=== PATIENT | female | born 1940 | race Caucasian/White ===

== ENCOUNTER → 2016-04-27 | Outpatient (CLI) | payer MEDICARE, OTHER ==
[~2016-04-27] MED LIST: ADVA250A INH; AMLO10TA2 PO; BACT800T5 PO; LISI-515 PO; SIMV40TA PO; SIMVPOW
[2016-04-27 12:47] LABS: HEMATOCRIT 37.9 % (35.0-46.0); MEAN CELL VOLUME 98.4 FL (80.0-100.0); MEAN CORPUSCULAR HEMOGLOBIN 32.6 PG (27.0-34.0); MEAN CORPUSCULAR HGB CONC 33.1 % (32.0-36.0); PLATELET COUNT 223 TH/MM3 (150-450); RED BLOOD COUNT 3.85 MIL/MM3 (4.00-5.30); RED CELL DISTRIBUTION WIDTH 17.3 % (11.6-17.2); REVIEW FLAG FINAL; WHITE BLOOD COUNT 4.2 TH/MM3 (4.0-11.0)
[2016-04-27 13:31] LABS: ALKALINE PHOSPHATASE 81 U/L (45-117); ALT (GPT) 17 U/L (10-53); ANION GAP 6 MEQ/L (5-15); AST (GOT) 15 U/L (15-37); BICARBONATE 28.5 MEQ/L (21.0-32.0); BLOOD UREA NITROGEN 14 MG/DL (7-18); CHLORIDE 107 MEQ/L (98-107); GLOMERULAR FILTRATION RATE 55 ML/MIN (>89); GLUCOSE,FASTING 84 MG/DL (74-99); HDL CHOLESTEROL 66.3 MG/DL (40.0-60.0); LDL CHOLESTEROL 69 MG/DL (0-99); POTASSIUM 4.4 MEQ/L (3.5-5.1); SODIUM (NA) 141 MEQ/L (136-145); TOTAL BILIRUBIN ADULT 0.3 MG/DL (0.2-1.0)
[2016-04-27 13:33] LABS: CREATINE KINASE 78 U/L (26-192)
== END ==
LOC: PLAB 08:22
DX: E78.5 Hyperlipidemia, unspecified (principal); I10 Essential (primary) hypertension; Z79.899 Other long term (current) drug therapy
CPT/HCPCS: 36415; 80053; 80061; 82550; 85027

== ENCOUNTER 2016-10-10 10:59 | Emergency (ER) | payer OTHER, MEDICARE ==
[~2016-10-10] VITALS: Ht 172.7 cm; Wt 63.8 kg
[~2016-10-10 10:59] MED LIST changes: -BACT800T5 PO; -SIMV40TA PO
[2016-10-10 11:00] VITALS: BP 126/74; PULSE 84; RESP 18; TEMP 97.8; O2SAT 94
[2016-10-10] MEDS ORDERED: SIMV40TA PO (11:23)
[2016-10-10] MEDS ORDERED: ADVA250A INH (11:23)
--- NOTE | 2016-10-10 11:27 | PD ---
HPI Chief Complaint: Abdominal Pain Time Seen by Provider: 11:09 Travel History International Travel<30 days: No Contact w/Intl Traveler<30days: No Traveled to known affect area: No History of Present Illness HPI 76-year-old female says she been having some tightness across the epigastric area for several days. Last night she was having some right flank pain. She has a history of hysterectomy at which time an appendectomy was also done. She has not had any dysuria. She is not having pain right now. She does have carpal tunnel syndrome. She is being scheduled for surgery but her surgeon had told her he wanted to be sure she did not have an abdominal aneurysm because he felt a prominent pulsation PFS Past Medical History Cardiovascular Problems: Yes Respiratory: Yes ?: Not Social History Tobacco Use: No Allergies-Medications (Allergen,Severity, Reaction): Coded Allergies: No Known Allergies (Unverified , 10/10/16) Reported Meds & Prescriptions Reported Meds & Active Scripts Active Reported Advair Diskus Inh (Fluticasone-Salmeterol Inh) 250-50 Mcg/Blist Aer 1 Puff INH BID Rinse mouth after use. Simvastatin 40 Mg Tab 40 Mg PO HS Advair Diskus Inh (Fluticasone-Salmeterol Inh) 250-50 Mcg/Blist Aer 1 Puff INH BID Rinse mouth after use. Amlodipine (Amlodipine Besylate) 10 Mg Tab 10 Mg PO DAILY Lisinopril 20 Mg Tab 20 Mg PO DAILY Review of Systems General / Constitutional: No: Fever, Chills Eyes: No: Diploplia HENT: No: Headaches Cardiovascular: No: Chest Pain or Discomfort Respiratory: No: Cough, Shortness of Breath Gastrointestinal: No: Nausea Genitourinary: Positive: Flank Pain Musculoskeletal: No: Myalgias, Arthralgias Skin: No Rash, No Itching Neurologic: No: Weakness Physical Exam Narrative GENERAL: Well-developed male SKIN: Focused skin assessment warm/dry. HEAD: Atraumatic. Normocephalic. EYES: Pupils equal and round. No scleral icterus. No injection or drainage. ENT: No nasal bleeding or discharge. Mucous membranes pink and moist. NECK: Trachea midline. No JVD. CARDIOVASCULAR: Regular rate and rhythm. No murmur appreciated. RESPIRATORY: No accessory muscle use. Clear to auscultation. Breath sounds equal bilaterally. GASTROINTESTINAL: Abdomen soft, non-tender, nondistended. Hepatic and splenic margins not palpable. There is some right CVA tenderness MUSCULOSKELETAL: No obvious deformities. No clubbing. No cyanosis. No edema. NEUROLOGICAL: Awake and alert. No obvious cranial nerve deficits. Motor grossly within normal limits. Normal speech. PSYCHIATRIC: Appropriate mood and affect; insight and judgment normal. Data Data Last Documented VS Vital Signs Date Time Temp Pulse Resp B/P Pulse Ox O2 Delivery O2 Flow Rate FiO2 10/10/16 13:24 86 16 108/60 96 10/10/16 11:00 97.8 Orders Complete Blood Count With Diff (10/10/16 11:16) Comprehensive Metabolic Panel (10/10/16 11:16) Lipase (10/10/16 11:16) Urinalysis - C+S If Indicated (10/10/16 11:16) Urine Culture (10/10/16 11:40) Ceftriaxone Inj (Rocephin Inj) (10/10/16 12:00) Ct Abd/Pel W Iv Contrast(Rout) (10/10/16 12:00) Iohexol 350 Inj (Omnipaque 350 Inj) (10/10/16 13:41) Labs Laboratory Tests Test 10/10/16 11:40 White Blood Count 4.7 TH/MM3 Red Blood Count 3.79 MIL/MM3 Hemoglobin 12.7 GM/DL Hematocrit 37.6 % Mean Corpuscular Volume 99.2 FL Mean Corpuscular Hemoglobin 33.6 PG Mean Corpuscular Hemoglobin 33.9 % Concent Red Cell Distribution Width 17.5 % Platelet Count 254 TH/MM3 Mean Platelet Volume 6.6 FL Neutrophils (%) (Auto) 63.4 % Lymphocytes (%) (Auto) 23.6 % Monocytes (%) (Auto) 8.7 % Eosinophils (%) (Auto) 3.4 % Basophils (%) (Auto) 0.9 % Neutrophils # (Auto) 3.0 TH/MM3 Lymphocytes # (Auto) 1.1 TH/MM3 Monocytes # (Auto) 0.4 TH/MM3 Eosinophils # (Auto) 0.2 TH/MM3 Basophils # (Auto) 0.0 TH/MM3 CBC Comment DIFF FINAL Differential Comment Urine Collection Type CLEAN CATCH Urine Color YELLOW Urine Turbidity MARKED Urine pH 5.5 Urine Specific [place] 1.011 Urine Protein TRACE mg/dL Urine Glucose (UA) NEG mg/dL Urine Ketones NEG mg/dL Urine Occult Blood MOD Urine Nitrite NEG Urine Bilirubin NEG Urine Leukocyte Esterase LARGE Urine RBC 25-49 /hpf Urine WBC INNUM /hpf Urine Squamous Epithelial > 8 /hpf Cells Urine Bacteria MOD /hpf Microscopic Urinalysis Comment CULTURE INDICATED Urine Collection Time 11:40 Sodium Level 139 MEQ/L Potassium Level 4.8 MEQ/L Chloride Level 105 MEQ/L Carbon Dioxide Level 24.2 MEQ/L Anion Gap 10 MEQ/L Blood Urea Nitrogen 16 MG/DL Creatinine 1.10 MG/DL Estimat Glomerular Filtration 48 ML/MIN Rate Random Glucose 97 MG/DL Calcium Level 8.8 MG/DL Total Bilirubin 0.4 MG/DL Aspartate Amino Transf 29 U/L (AST/SGOT) Alanine Aminotransferase 20 U/L (ALT/SGPT) Alkaline Phosphatase 66 U/L Total Protein 7.1 GM/DL Albumin 3.7 GM/DL Lipase 146 U/L [facility] Medical Decision Making Medical Screen Exam Complete: Yes Emergency Medical Condition: Yes Medical Record Reviewed: Yes Differential Diagnosis Differential includes renal colic, abdominal aortic aneurysm, pyelonephritis Narrative Course Hemoglobin is 12 7. White count is 4.7. Urine shows innumerable white cells. Because of the concern for abdominal aneurysms a CT was done which is read as negative. Patient be treated with Bactrim Diagnosis Primary Impression: Pyelonephritis Scripts Sulfamethoxazole-Trimethoprim (Bactrim DS)800-160 Mg Tab1 Tab PO BID #20 TAB Ref 0 Prov:Moises Lee MD 10/10/16 Disposition: 01 DISCHARGE HOME Condition: Stable Moises Lee MD Oct 10, 2016 11:27
[2016-10-10 11:50] LABS: BASOPHIL % 0.9 % (0.0-2.0); EOSINOPHIL # 0.2 TH/MM3 (0-0.4); EOSINOPHIL % 3.4 % (0.0-4.0); HEMATOCRIT 37.6 % (35.0-46.0); HEMO FLAGS DIFF FINAL; LYMPH % 23.6 % (9.0-44.0); LYMPHOCYTE # 1.1 TH/MM3 (1.0-4.8); MEAN CELL VOLUME 99.2 FL (80.0-100.0); MEAN CORPUSCULAR HEMOGLOBIN 33.6 PG (27.0-34.0); MEAN CORPUSCULAR HGB CONC 33.9 % (32.0-36.0); MONO % 8.7 % (0.0-8.0); NEUT % 63.4 % (16.0-70.0); PLATELET COUNT 254 TH/MM3 (150-450); RED BLOOD COUNT 3.79 MIL/MM3 (4.00-5.30); RED CELL DISTRIBUTION WIDTH 17.5 % (11.6-17.2); WHITE BLOOD COUNT 4.7 TH/MM3 (4.0-11.0)
[2016-10-10 11:51] LABS: GLUCOSE,URINE NEG (NEG); KETONE, URINE NEG (NEG); NITRITE,URINE NEG (NEG); PH, URINE 5.5 (5.0-8.5)
[2016-10-10 11:57] LABS: BLOOD, URINE MOD (NEG); METHOD OF COLLECTION CLEAN CATCH; URINE COLOR YELLOW (YELLW/STRAW)
[2016-10-10 11:58] LABS: BACTERIA, URINE MOD /hpf; CHLORIDE 105 MEQ/L (98-107); COMMENT (UR) CULTURE INDICATED; CULTURE IF INDICATED CULTURE INDICATED; POTASSIUM 4.8 MEQ/L (3.5-5.1); SODIUM (NA) 139 MEQ/L (136-145); SQUAMOUS EPITHELIAL CELL URINE > 8 /hpf (0-5); WBC, URINE INNUM /hpf (0-5)
[2016-10-10] MEDS ORDERED: cefTRIAXone INJ 1,000 MG in SODIUM CHLORIDE 0.9% INJ 100 ML IV ONE (12:00)
[2016-10-10 12:02] LABS: ANION GAP 10 MEQ/L (5-15); BICARBONATE 24.2 MEQ/L (21.0-32.0); BLOOD UREA NITROGEN 16 MG/DL (7-18)
[2016-10-10 12:05] LABS: ALT (GPT) 20 U/L (10-53); AST (GOT) 29 U/L (15-37); GLOMERULAR FILTRATION RATE 48 ML/MIN (>89)
[2016-10-10 12:06] LABS: TOTAL BILIRUBIN ADULT 0.4 MG/DL (0.2-1.0)
[2016-10-10 12:08] LABS: ALKALINE PHOSPHATASE 66 U/L (45-117)
[2016-10-10 13:24] VITALS: BP 108/60; PULSE 86; RESP 16; O2SAT 96
[2016-10-10] MEDS ORDERED: IOHEXOL 350 MG/ML 10 ML VIAL (for RAD DIAG) IV ONE (13:41)
--- NOTE | 2016-10-10 14:03 | RADHPO ---
EXAM DATE/TIME: 10/10/2016 13:27 [facility] COMPARISON: No previous studies available for comparison. INDICATIONS : Upper abdominal pain radiaitng to right flank posteriorly. IV CONTRAST: 75 cc Omnipaque 350 (iohexol) IV ORAL CONTRAST: No oral contrast ingested. RADIATION DOSE: 7.04 CTDIvol (mGy) MEDICAL HISTORY : Hypertension. Chronic obstructive pulmonary disease. SURGICAL HISTORY : Appendectomy. Hysterectomy. ENCOUNTER: Initial ACUITY: 2 days PAIN SCALE: 4/10 LOCATION: Right upper quadrant TECHNIQUE: Volumetric scanning of the abdomen and pelvis was performed. Using automated exposure control and ad justment of the mA and/or kV according to patient size, radiation dose was kept as low as reasonably achievable to obtain optimal diagnostic quality images. FINDINGS: LOWER LUNGS: Moderate centrilobular emphysema with scarring noted at the bases. LIVER: Homogeneous density without lesion. There is no dilation of the biliary tree. No calcified gallston es. SPLEEN: Normal size without lesion. PANCREAS: Within normal limits. KIDNEYS: Slightly asymmetrical in size with mild sigmoid diverticulosis without evidence for typhlitis. apparent cortical scarring bilaterally. Kidneys are otherwise unremarkable and demonstrate symmetrica l enhancement without evidence for hydronephrosis or renal calculi. ADRENAL GLANDS: Within normal limits. VASCULAR: Moderate abdominal aortic and described calcifications without aneurysm. Celiac is grossly patent. Th ere is likely moderate stenosis of the SMA origin. This likely moderate stenosis. Calcified left phillip l artery origin with likely mild stenosis. Evaluation is however limited due to mixed phase imaging. BOWEL/MESENTERY: Mild sigmoid diverticulosis without inflammatory change to suggest diverticulitis. Bowel otherwise ap pears unremarkable. No evidence for obstruction. The appendix is surgically absent. ABDOMINAL WALL: Within normal limits. RETROPERITONEUM: There is no lymphadenopathy. BLADDER: No wall thickening or mass. REPRODUCTIVE: Uterus is surgically absent. INGUINAL: There is no lymphadenopathy or hernia. MUSCULOSKELETAL: No abnormal lytic or blastic bony lesions. Degenerative spondylosis of the lower lumbar spine. CONCLUSION: 1. No definitive CT findings to explain patient's symptoms. 2. Moderate centrilobular emphysema in the lower lobes bilaterally. 3. Mild sigmoid diverticulosis without evidence of diverticulitis. 4. Diffuse atherosclerotic calcifications of the abdominal aorta and visceral artery branches, as abo ve. Aidan Rehman MD on October 10, 2016 at 13:49 Board Certified Radiologist. This report was verified electronically.
[2016-10-10] MEDS ORDERED: BACT800T5 PO (14:16)
== END 2016-10-10 14:27 | disposition home or self-care (01) ==
LOC: PHED 10:59
DX: N12 Tubulo-interstitial nephritis, not specified as acute or chronic (principal); B96.89 Other specified bacterial agents as the cause of diseases classified elsewhere
CPT/HCPCS: 74177; 80053; 81001; 83690; 85025; 87077; 87086; 87186; 96365; 96375; 99284; J0696; Q9967

== ENCOUNTER → 2016-10-20 | Outpatient (CLI) | payer MEDICARE, OTHER ==
[~2016-10-20] MED LIST changes: +BACT800T5 PO; +SIMV40TA PO; -SIMVPOW
== END ==
LOC: PLAB 08:53
DX: N39.0 Urinary tract infection, site not specified (principal)
CPT/HCPCS: 87086

== ENCOUNTER → 2016-10-27 | Outpatient (CLI) | payer MEDICARE, OTHER ==
[2016-10-27 10:21] LABS: ANION GAP 8 MEQ/L (5-15); AST (GOT) 14 U/L (15-37); BLOOD UREA NITROGEN 20 MG/DL (7-18); CHLORIDE 105 MEQ/L (98-107); GLOMERULAR FILTRATION RATE 60 ML/MIN (>89); GLUCOSE,FASTING 88 MG/DL (74-99); POTASSIUM 4.5 MEQ/L (3.5-5.1); SODIUM (NA) 137 MEQ/L (136-145)
[2016-10-27 10:22] LABS: ALT (GPT) 16 U/L (10-53)
[2016-10-27 10:25] LABS: ALKALINE PHOSPHATASE 66 U/L (45-117); HDL CHOLESTEROL 61.2 MG/DL (40.0-60.0); LDL CHOLESTEROL 90 MG/DL (0-99); TOTAL BILIRUBIN ADULT 0.3 MG/DL (0.2-1.0)
[2016-10-27 10:32] LABS: CREATINE KINASE 57 U/L (26-192)
== END ==
LOC: PLAB 07:33
DX: E78.5 Hyperlipidemia, unspecified (principal); Z79.899 Other long term (current) drug therapy
CPT/HCPCS: 36415; 80053; 80061; 82550

== ENCOUNTER → 2016-11-02 | Day surgery (SDC) | payer MEDICARE, OTHER ==
[~2016-11-02] VITALS: Ht 172.7 cm; Wt 62.0 kg
[~2016-11-02] MED LIST changes: +BACITRACIN TOP OINT 15 GM TUBE ONE; +BUPIVACAINE HCL PF 0.5% 30 ML VIAL ONE; +CHLORHEXIDINE GLUCONATE 2 % 1 PACK (2 CLOTHS) TOPICAL PRN; +DEXAMETHASONE SOD PHOS 4 MG/ML VIAL ONE; +DEXT 5%-NACL 0.45% 1000 ML INJ 1,000 ML IV SCH; +INSULIN HUMAN REGULAR 1,000 UNITS/10 ML VIAL SQ PRN; +LACTATED RINGER'S 1000 ML INJ 1,000 ML IV ONE; +LACTATED RINGER'S 1000 ML IV PRN; +LIDOCAINE 1%/EPINEPHrine 1:100,000 SOLN 30 ML VIAL ONE; +METOPROLOL TARTRATE 25 MG TAB PO PRN; +MIDAZOLAM HCL 2 MG/2 ML VIAL ONE; +ONDANSETRON HCL 4 MG/2 ML VIAL IV ONE; +OXYMETAZOLINE HCL 0.05% 15 ML NASAL SPRAY ONE; +POVIDONE IODINE 10% OINT 1 PACKET TOPICAL ONE; +POVIDONE IODINE 5% (ANTISEPSIS KIT) 4 APPLICATIONS EACH NARE PRN; +PROPOFOL 200 MG/20 ML AMP IV ONE; +SODIUM CHLORID 0.9% 500 ML IV PRN; +SODIUM CHLORIDE 0.9% FLUSH 5 ML FLUSH IVF PRN; +SODIUM CHLORIDE 0.9% FLUSH 5 ML FLUSH IVF SCH; +SODIUM CHLORIDE 0.9% INJ 50 ML ONE; +ceFAZolin 1,000 MG/NS 100 ML IV SCH
--- NOTE | 2016-11-02 08:44 | HP.UPD ---
H&P Update Date: Nov 02, 2016 Note The Pre-Admit History and Physical Examination regarding the above named patient was reviewed (including, but not limited to, vital signs, medications, allergies, co-morbid conditions), and upon re-examination it is noted that: Indicated with "X" x - the patient's condition has not significantly changed since the last examination. [] - the patient's condition has changed since the last examination. Changes: Tatyana Urrutia MD Nov 02, 2016 08:43
[2016-11-02 09:10] VITALS: BP 122/78; PULSE 68; RESP 18; TEMP 97.4; O2SAT 97
[2016-11-02 12:15] VITALS: PULSE 73
--- NOTE | 2016-11-02 12:23 | HHI.PR ---
Immediate Post Op Note Procedure Date: Nov 02, 2016 Pre Op Diagnosis: (1) Right carpal tunnel syndrome Post Op Diagnosis: (1) Right carpal tunnel syndrome Surgeon: Tatyana Urrutia Shell Reprint Operator(s): None Procedure: Open release of the right carpal tunnel. Anesthesia: General Drains: None Tourniquet time (min at mmHg) 19 minutes at 220 mm Hg Patient to: PACU Patient Condition: Good Date/Time of Procedure: SEE SURGICAL CARE RECORD Tatyana Urrutia MD Nov 02, 2016 12:23
[2016-11-02 13:20] VITALS: BP 105/59; PULSE 85; RESP 16; TEMP 97.6; O2SAT 100
--- NOTE | 2016-11-02 19:02 | EKG ---
Date Performed: 11/02/2016 Time Performed: 09:15:39 PTAGE: 76 years EKG: Sinus rhythm WITH OCCASIONAL VENTRICULAR PREMATURE COMPLEXES LOW QRS VOLTAGE IN EXTREMITY LEADS BORDERLINE ECG NO PREVIOUS TRACING DOCTOR: Matt Allison Interpretating Date/Time 11/02/2016 19:01:33
--- NOTE | 2016-11-02 23:02 | MP ---
cc: JUAREZ FRENCH M.D. DATE OF SURGERY: 11/02/2016 PREOPERATIVE DIAGNOSIS: Right carpal tunnel syndrome POSTOPERATIVE DIAGNOSIS: Right carpal tunnel syndrome OPERATION: Open release of the right carpal tunnel. ANESTHESIA: General. SURGEON: Juarez French MD INDICATIONS 76-year-old female with right carpal tunnel syndrome for release. FINDINGS The patient had a tight tunnel. At the completion of the procedure the transverse carpal ligament was completely divided. TOURNIQUET TIME: 19 minutes. PROCEDURE: The patient was seen preoperatively where the site and side were identified and marked. The patient was then taken to the operating room, placed in supine position, identity was checked against the arm band and the consent form, site and side confirmed, time-out called prior to beginning the procedure. The right upper extremity was prepped with Hibiclens and draped in the usual sterile fashion. The area be incised was outlined with a marking pain, as a longitudinal incision just to the ulnar side of the midline. The arm was exsanguinated and tourniquet inflated to 220 mmHg, bupivacaine 0.5% plain was used to make a median nerve block in the distal forearm. In addition, anesthetic was placed in the area of the incision. A #15 blade was used to make an incision down through skin down through subcutaneous tissue down to the palmar fascia. Distally a small hole was poked in the palmar fascia and using the ulnar artery as a guide Guyon's canal was released. The ulnar artery and nerve were retracted ulnarly. The median nerve retracted medially and using the flexor tendon to the ring finger as a guide, the transverse carpal ligament was divided. Once the forearm fascia was reached the scissor was kept in a slightly open position and using the push technique release for approximately 2 to 3 cm into the distal forearm. The median nerve was then carefully from the roof of the carpal tunnel. There was no significant scarring noted but there was flattening of the nerve. The wound was then irrigated and injected with additional anesthetic and closed with running 5-0 nylon suture. Once the wound was closed the tourniquet was released after 19 minutes of tourniquet time. Pressure was applied after several minutes, there was no evidence of any oozing. Dressing was applied using povidone-iodine ointment, Adaptic, Telfa, 4x4s and hand wrap. The patient was then taken from the operating room to the recovery room in satisfactory condition having tolerated the procedure well. Postoperative instructions include keeping the arm elevated, keeping it clean and dry and returning in several days for follow up. MD KAREN Wallace/MANAN /12:31 PM /10:58 PM
== END | disposition home or self-care (01) ==
LOC: PHSDC 07:41
PROVIDERS: ATTEND Specialist
DX: G56.01 Carpal tunnel syndrome, right upper limb (principal); I10 Essential (primary) hypertension; E78.5 Hyperlipidemia, unspecified; J44.9 Chronic obstructive pulmonary disease, unspecified; J45.909 Unspecified asthma, uncomplicated
CPT/HCPCS: 64721; 93005; J0690; J1100; J2250; J2405; J7120

== ENCOUNTER 2017-01-06 12:20 | Emergency (ER) | payer MEDICARE, OTHER ==
[~2017-01-06 12:20] MED LIST changes: -BACITRACIN TOP OINT 15 GM TUBE ONE; -BACT800T5 PO; -BUPIVACAINE HCL PF 0.5% 30 ML VIAL ONE; -CHLORHEXIDINE GLUCONATE 2 % 1 PACK (2 CLOTHS) TOPICAL PRN; +CYAN1KIT2 IM; -DEXAMETHASONE SOD PHOS 4 MG/ML VIAL ONE; -DEXT 5%-NACL 0.45% 1000 ML INJ 1,000 ML IV SCH; -INSULIN HUMAN REGULAR 1,000 UNITS/10 ML VIAL SQ PRN; -LACTATED RINGER'S 1000 ML INJ 1,000 ML IV ONE; -LACTATED RINGER'S 1000 ML IV PRN; -LIDOCAINE 1%/EPINEPHrine 1:100,000 SOLN 30 ML VIAL ONE; -METOPROLOL TARTRATE 25 MG TAB PO PRN; -MIDAZOLAM HCL 2 MG/2 ML VIAL ONE; -ONDANSETRON HCL 4 MG/2 ML VIAL IV ONE; -OXYMETAZOLINE HCL 0.05% 15 ML NASAL SPRAY ONE; -POVIDONE IODINE 10% OINT 1 PACKET TOPICAL ONE; -POVIDONE IODINE 5% (ANTISEPSIS KIT) 4 APPLICATIONS EACH NARE PRN; -PROPOFOL 200 MG/20 ML AMP IV ONE; -SODIUM CHLORID 0.9% 500 ML IV PRN; -SODIUM CHLORIDE 0.9% FLUSH 5 ML FLUSH IVF PRN; -SODIUM CHLORIDE 0.9% FLUSH 5 ML FLUSH IVF SCH; -SODIUM CHLORIDE 0.9% INJ 50 ML ONE; -ceFAZolin 1,000 MG/NS 100 ML IV SCH
[2017-01-06] MEDS ORDERED: GADODIAMIDE PF 287 MG/ML 5 ML VIAL (for RAD MRI) IVCONTRAST ONE (12:21)
[2017-01-06 12:26] VITALS: BP 123/68; PULSE 95; RESP 20; TEMP 97.2; O2SAT 95
--- NOTE | 2017-01-06 13:03 | PD ---
HPI Chief Complaint: Neuro Symptoms/ Deficits Time Seen by Provider: 12:35 Travel History International Travel<30 days: No Contact w/Intl Traveler<30days: No Traveled to known affect area: No History of Present Illness HPI This is a 76-year-old female who presents to the emergency department reporting that this morning she woke up and she had numbness in the left side of her face. She says she also has numbness in both of her hands but this is chronic and she has a history of carpal tunnel syndrome in the right hand. Her symptoms of been constant throughout the morning and she talked to a family member and they thought her face looked different so she came to the emergency department. She says she's having trouble with coordination. She's not a good historian and it's difficult to tell whether this is new or old. She denies any headache. PFSH Past Medical History Cancer: No Cardiovascular Problems: No High Cholesterol: Yes COPD: Yes Diabetes: No Diminished Hearing: No Endocrine: No Genitourinary: No Hepatitis: No Hiatal Hernia: No Hypertension: Yes Immune Disorder: No Musculoskeletal: No Neurologic: No Psychiatric: Yes (CLAUSTERPHOBIA) Reproductive: No Respiratory: Yes (COPD) Thyroid Disease: No Tetanus Vaccination: > 5 Years Influenza Vaccination: Yes Menopausal: Yes Past Surgical History Abdominal Surgery: Yes (POSSIBLE APPENDECTOMY) AICD: No Appendectomy: Yes Eye Surgery: Yes (BL CATARACTS) Gynecologic Surgery: Yes (HYSTERECTOMY, R BREAST BIOPSY) Hysterectomy: Yes Joint Replacement: No Pacemaker: No Other Surgery: Yes (CARPAL TUNNEL) Social History Alcohol Use: No Tobacco Use: No Substance Use: No Allergies-Medications (Allergen,Severity, Reaction): Coded Allergies: No Known Allergies (Unverified , 01/06/17) Reported Meds & Prescriptions Reported Meds & Active Scripts Active B-12 Compliance Inj (Cyanocobalamin) 1,000 Mcg/Ml Kit 1,000 Mcg IM Q30D Bring to PCP for injection Reported Simvastatin 40 Mg Tab 40 Mg PO HS Advair Diskus Inh (Fluticasone-Salmeterol Inh) 250-50 Mcg/Blist Aer 1 Puff INH BID Rinse mouth after use. Amlodipine (Amlodipine Besylate) 10 Mg Tab 10 Mg PO DAILY Lisinopril 20 Mg Tab 20 Mg PO DAILY Review of Systems Except as stated in HPI: all other systems reviewed are Neg Physical Exam Narrative GENERAL:Well appearing, no acute distress SKIN: Focused skin assessment warm and dry. HEAD: Atraumatic. Normocephalic. EYES: Pupils equal and round. No injection or drainage. ENT: Moist mucous membranes. Swelling of the left upper lip NECK: Trachea midline. CARDIOVASCULAR: Regular rate and rhythm. No murmur appreciated. RESPIRATORY: Clear to auscultation. Breath sounds equal bilaterally. GASTROINTESTINAL: Abdomen soft, non-tender, nondistended. MUSCULOSKELETAL: No obvious deformities. NEUROLOGICAL: Awake and alert. No obvious cranial nerve deficits. No dysarthria or aphasia. No upper or lower extremity drift. Ataxia of the left upper extremity. Visual drake intact. PSYCHIATRIC: Appropriate mood and affect; insight and judgment normal. Data Data Last Documented VS Vital Signs Date Time Temp Pulse Resp B/P (MAP) Pulse Ox O2 Delivery O2 Flow Rate FiO2 01/06/17 15:06 83 16 116/65 (82) 99 Room Air 01/06/17 12:26 97.2 Orders Orders Complete Blood Count With Diff (01/06/17 12:44) Comprehensive Metabolic Panel (01/06/17 12:44) Electrocardiogram (01/06/17 ) Lorazepam Inj (Ativan Inj) (01/06/17 13:45) Mri Brain W/O Contrast (01/06/17 ) Labs Laboratory Tests Test 01/06/17 13:00 White Blood Count 5.3 TH/MM3 Red Blood Count 3.58 MIL/MM3 Hemoglobin 11.6 GM/DL Hematocrit 35.3 % Mean Corpuscular Volume 98.5 FL Mean Corpuscular Hemoglobin 32.5 PG Mean Corpuscular Hemoglobin Concent 33.0 % Red Cell Distribution Width 16.0 % Platelet Count 404 TH/MM3 Mean Platelet Volume 6.8 FL Neutrophils (%) (Auto) 67.3 % Lymphocytes (%) (Auto) 14.7 % Monocytes (%) (Auto) 12.2 % Eosinophils (%) (Auto) 4.8 % Basophils (%) (Auto) 1.0 % Neutrophils # (Auto) 3.4 TH/MM3 Lymphocytes # (Auto) 0.8 TH/MM3 Monocytes # (Auto) 0.7 TH/MM3 Eosinophils # (Auto) 0.3 TH/MM3 Basophils # (Auto) 0.1 TH/MM3 CBC Comment DIFF FINAL Differential Comment Blood Urea Nitrogen 17 MG/DL Creatinine 1.20 MG/DL Random Glucose 100 MG/DL Total Protein 6.7 GM/DL Albumin 3.3 GM/DL Calcium Level 8.4 MG/DL Alkaline Phosphatase 94 U/L Aspartate Amino Transf (AST/SGOT) 29 U/L Alanine Aminotransferase (ALT/SGPT) 22 U/L Total Bilirubin 0.3 MG/DL Sodium Level 136 MEQ/L Potassium Level 4.5 MEQ/L Chloride Level 105 MEQ/L Carbon Dioxide Level 21.7 MEQ/L Anion Gap 9 MEQ/L Estimat Glomerular Filtration Rate 44 ML/MIN MDM Medical Decision Making Medical Screen Exam Complete: Yes Emergency Medical Condition: Yes Differential Diagnosis Ischemic stroke, hemorrhagic stroke, edema, dental infection Narrative Course This is a 76-year-old female who presents to the emergency department with swelling of her left upper lip and numbness in her face that started earlier today after she woke up from sleep. On Exam she seems to have some swelling of her left upper lip. She is grossly ataxic in the left upper extremity. She's early poor historian and it's hard to tell if this is new or old finding. Given there is some concern for an acute neurologic event I think it's reasonable just to obtain an MRI. At this is normal I think the patient can be discharged and she is likely having a local reaction to her dentures. She is very anxious. I suspect this is contributing to her presentation. Trinidad Celis MD Jan 06, 2017 13:03
[2017-01-06 13:12] LABS: AUTOMATED NEUTROPHIL # 3.4 TH/MM3 (1.8-7.7); BASOPHIL # 0.1 TH/MM3 (0-0.2); EOSINOPHIL # 0.3 TH/MM3 (0-0.4); EOSINOPHIL % 4.8 % (0.0-4.0); HEMATOCRIT 35.3 % (35.0-46.0); HEMO FLAGS DIFF FINAL; LYMPH % 14.7 % (9.0-44.0); LYMPHOCYTE # 0.8 TH/MM3 (1.0-4.8); MEAN CELL VOLUME 98.5 FL (80.0-100.0); MEAN CORPUSCULAR HEMOGLOBIN 32.5 PG (27.0-34.0); MONO % 12.2 % (0.0-8.0); NEUT % 67.3 % (16.0-70.0); PLATELET COUNT 404 TH/MM3 (150-450); RED BLOOD COUNT 3.58 MIL/MM3 (4.00-5.30); WHITE BLOOD COUNT 5.3 TH/MM3 (4.0-11.0)
[2017-01-06 13:20] LABS: CHLORIDE 105 MEQ/L (98-107); POTASSIUM 4.5 MEQ/L (3.5-5.1); SODIUM (NA) 136 MEQ/L (136-145)
[2017-01-06 13:23] LABS: ANION GAP 9 MEQ/L (5-15); BICARBONATE 21.7 MEQ/L (21.0-32.0); BLOOD UREA NITROGEN 17 MG/DL (7-18)
[2017-01-06 13:26] LABS: AST (GOT) 29 U/L (15-37)
[2017-01-06 13:27] LABS: GLOMERULAR FILTRATION RATE 44 ML/MIN (>89)
[2017-01-06 13:28] LABS: TOTAL BILIRUBIN ADULT 0.3 MG/DL (0.2-1.0)
[2017-01-06 13:29] LABS: ALKALINE PHOSPHATASE 94 U/L (45-117)
[2017-01-06 13:31] LABS: ALT (GPT) 22 U/L (10-53)
[2017-01-06] MEDS ORDERED: LORazepam 2 MG/ML VIAL IV PUSH ONE (13:45)
[2017-01-06 15:06] VITALS: BP 116/65; PULSE 83; RESP 16; O2SAT 99
[2017-01-06 16:14] VITALS: BP 112/84; PULSE 82; RESP 16; O2SAT 96
--- NOTE | 2017-01-06 16:14 | PD ---
Physical Exam Narrative Received sign out from previous team to follow up MRI brain. 76yo F woke up with some numbness and swelling above left lip. Also has history of carpal tunnel surgery 3 months ago and has some tingling in her fingers. Had some tingling in her toes for 3 months as well. Denies any weakness. Labs reviewed, no leukocytosis. CMP unremarkable. MRI brain showed no definite findings to indicate acute cortical infarction are present. Scattered areas of increased T2 signal in the white matter most consistent with moderate microvascular ischemic demyelinative change. Informed pt of this and that pt needs to follow up with neurology. Pt states she has seen Dr. Clay before and I gave her the option of going back to or call the number I provided. Pt given a copy of the MRI brain results. Return precautions given. Data Data Last Documented VS Vital Signs Date Time Temp Pulse Resp B/P (MAP) Pulse Ox O2 Delivery O2 Flow Rate FiO2 01/06/17 18:28 87 16 112/63 (79) 95 Room Air 01/06/17 12:26 97.2 Orders Orders Complete Blood Count With Diff (01/06/17 12:44) Comprehensive Metabolic Panel (01/06/17 12:44) Electrocardiogram (01/06/17 ) Lorazepam Inj (Ativan Inj) (01/06/17 13:45) Mri Brain W&W/O Contrast (01/06/17 ) Gadodiamide Pf Inj (Omniscan Pf Inj) (01/06/17 12:21) Labs Laboratory Tests Test 01/06/17 13:00 White Blood Count 5.3 TH/MM3 Red Blood Count 3.58 MIL/MM3 Hemoglobin 11.6 GM/DL Hematocrit 35.3 % Mean Corpuscular Volume 98.5 FL Mean Corpuscular Hemoglobin 32.5 PG Mean Corpuscular Hemoglobin Concent 33.0 % Red Cell Distribution Width 16.0 % Platelet Count 404 TH/MM3 Mean Platelet Volume 6.8 FL Neutrophils (%) (Auto) 67.3 % Lymphocytes (%) (Auto) 14.7 % Monocytes (%) (Auto) 12.2 % Eosinophils (%) (Auto) 4.8 % Basophils (%) (Auto) 1.0 % Neutrophils # (Auto) 3.4 TH/MM3 Lymphocytes # (Auto) 0.8 TH/MM3 Monocytes # (Auto) 0.7 TH/MM3 Eosinophils # (Auto) 0.3 TH/MM3 Basophils # (Auto) 0.1 TH/MM3 CBC Comment DIFF FINAL Differential Comment Blood Urea Nitrogen 17 MG/DL Creatinine 1.20 MG/DL Random Glucose 100 MG/DL Total Protein 6.7 GM/DL Albumin 3.3 GM/DL Calcium Level 8.4 MG/DL Alkaline Phosphatase 94 U/L Aspartate Amino Transf (AST/SGOT) 29 U/L Alanine Aminotransferase (ALT/SGPT) 22 U/L Total Bilirubin 0.3 MG/DL Sodium Level 136 MEQ/L Potassium Level 4.5 MEQ/L Chloride Level 105 MEQ/L Carbon Dioxide Level 21.7 MEQ/L Anion Gap 9 MEQ/L Estimat Glomerular Filtration Rate 44 ML/MIN MDM Supervised Visit with MANUEL: No Diagnosis Primary Impression: Numbness Referrals: Chandra Ng MD call for appointment MRI brain showed moderate microvascular ischemic demyelinative change. Patient Instructions: General Instructions Departure Forms: Tests/Procedures Additional Instruction: Please follow up with neurology as soon as you can. Return to the ED if symptoms worsen. Med/Other Pt SpecificInfo: No Change to Meds Disposition: 01 DISCHARGE HOME Condition: Stable Livia Crane DO Jan 06, 2017 16:14
--- NOTE | 2017-01-06 16:24 | RADRPT ---
EXAM DATE/TIME: 01/06/2017 15:53 [facility] COMPARISON: No previous studies available for comparison. INDICATIONS : CVA. Left sided weakness, dizziness, unsteady gait and left facial droop. CONTRAST: 15 cc Omniscan (gadodiamide) IV MEDICAL HISTORY : Hypertension. Chronic obstructive pulmonary disease. SURGICAL HISTORY : Hysterectomy. Appendectomy. Carpal tunnel syndrome. ENCOUNTER: Initial ACUITY: 1 day PAIN SCORE: 0/10 LOCATION: Head. TECHNIQUE: Multiplanar, multisequence MRI of the brain was performed both prior to and following the administrat ion of paramagnetic contrast. FINDINGS: CEREBRUM: The ventricles are normal for age. No evidence of midline shift, mass lesion, hemorrhage or acute in farction. No extraaxial fluid collections are seen. The pituitary gland and suprasellar cistern are normal in configuration. WHITE MATTER: There are scattered areas of increased T2 signal in the white matter most consistent with moderate mi crovascular ischemic demyelinative change. POSTERIOR FOSSA: The cerebellum and brainstem are intact. The 4th ventricle is midline. The cerebellopontine angle is unremarkable. The cerebellar tonsils are normal in position. DIFFUSION IMAGING: No focal areas of restricted diffusion are seen. No evidence of acute infarction. EXTRACRANIAL: The visualized portions of the orbits and paranasal sinuses are unremarkable. POST-CONTRAST: No abnormal areas of parenchymal or dural enhancement. No evidence of blood-brain barrier breakdown. CONCLUSION: 1. No definite findings to indicate acute cortical infarction are present. 2. Scattered areas of increased T2 signal in the white matter most consistent with moderate microvasc ular ischemic demyelinative change. Luca Jaime MD on January 06, 2017 at 16:20 Board Certified Radiologist. This report was verified electronically.
[2017-01-06 18:28] VITALS: BP 112/63; PULSE 87; RESP 16; O2SAT 95
--- NOTE | 2017-01-07 11:38 | EKG ---
Date Performed: 01/06/2017 Time Performed: 12:53:34 PTAGE: 76 years EKG: Sinus rhythm BORDERLINE LEFT AXIS DEVIATION BORDERLINE ECG Compared to prior tracing no significant change PREVIOUS TRACING : 11/02/2016 09.15 DOCTOR: Matt Allison Interpretating Date/Time 01/07/2017 11:37:24
== END 2017-01-06 18:29 | disposition home or self-care (01) ==
LOC: PHED 12:20
DX: R20.0 Anesthesia of skin (principal); I10 Essential (primary) hypertension
CPT/HCPCS: 70553; 80053; 85025; 93005; 96374; 99285; A9579; J2060

== ENCOUNTER → 2017-02-01 | Outpatient (CLI) | payer MEDICARE, OTHER ==
[2017-02-01 10:39] LABS: AUTOMATED NEUTROPHIL # 2.3 TH/MM3 (1.8-7.7); BASOPHIL # 0.1 TH/MM3 (0-0.2); BASOPHIL % 1.8 % (0.0-2.0); EOSINOPHIL # 0.5 TH/MM3 (0-0.4); EOSINOPHIL % 10.6 % (0.0-4.0); HEMATOCRIT 38.4 % (35.0-46.0); HEMO FLAGS DIFF FINAL; LYMPH % 28.1 % (9.0-44.0); LYMPHOCYTE # 1.3 TH/MM3 (1.0-4.8); MEAN CELL VOLUME 93.6 FL (80.0-100.0); MEAN CORPUSCULAR HEMOGLOBIN 30.4 PG (27.0-34.0); MEAN CORPUSCULAR HGB CONC 32.5 % (32.0-36.0); MONO % 10.4 % (0.0-8.0); NEUT % 49.1 % (16.0-70.0); PLATELET COUNT 358 TH/MM3 (150-450); RED BLOOD COUNT 4.11 MIL/MM3 (4.00-5.30); RED CELL DISTRIBUTION WIDTH 16.9 % (11.6-17.2); WHITE BLOOD COUNT 4.7 TH/MM3 (4.0-11.0)
[2017-02-01 10:48] LABS: ANION GAP 8 MEQ/L (5-15); AST (GOT) 20 U/L (15-37); BICARBONATE 25.1 MEQ/L (21.0-32.0); BLOOD UREA NITROGEN 16 MG/DL (7-18); CHLORIDE 104 MEQ/L (98-107); GLOMERULAR FILTRATION RATE 52 ML/MIN (>89); GLUCOSE,FASTING 90 MG/DL (74-99); POTASSIUM 4.2 MEQ/L (3.5-5.1); SODIUM (NA) 137 MEQ/L (136-145)
[2017-02-01 10:53] LABS: RHEUMATOID FACTOR TRIGGER LESS THAN 10.0 IU/ML (0.0-14.9)
[2017-02-01 11:01] LABS: TOTAL PROTEIN SPE 6.8 GM/DL (6.0-7.6)
[2017-02-01 11:16] LABS: ALKALINE PHOSPHATASE 102 U/L (45-117); ALT (GPT) 19 U/L (10-53); TOTAL BILIRUBIN ADULT 0.4 MG/DL (0.2-1.0)
[2017-02-01 11:18] LABS: CREATINE KINASE 76 U/L (26-192)
[2017-02-01 17:12] LABS: HEMOGLOBIN A1b 1.6 %; HEMOGLOBIN Ao 85.3 %; HEMOGLOBIN LA1C 1.9 %; HEMOGLOBIN P3 5.3 %
[2017-02-01 22:06] LABS: ALBUMIN SPE 4.15 GM/DL (3.50-5.00); ALPHA 1 GLOBULIN 0.16 GM/DL (0.11-0.29); ALPHA 2 GLOBULIN 0.88 GM/DL (0.22-1.00); BETA GLOBULINS (SPE) 0.8 GM/DL (0.53-1.03)
[2017-02-03 23:51] LABS: VITAMIN B6 3.3 ng/mL (2.1-21.7)
== END ==
LOC: PLAB 08:28
PROVIDERS: ATTEND Psychiatry & Neurology Neurology
DX: G64 Other disorders of peripheral nervous system (principal)
CPT/HCPCS: 36415; 80053; 82550; 82607; 82668; 82746; 83036; 84165; 84207; 84425; 85025; 86038; 86430

== ENCOUNTER → 2017-05-03 | Outpatient (CLI) | payer MEDICARE, OTHER ==
[2017-05-03 10:06] LABS: ALBUMIN 3.4 GM/DL (3.4-5.0); BICARBONATE 25.5 MEQ/L (21.0-32.0); CALCIUM 9.1 MG/DL (8.5-10.1); CHLORIDE 107 MEQ/L (98-107); CHOLESTEROL 143 MG/DL (120-200); GLUCOSE,FASTING 84 MG/DL (74-99); SODIUM (NA) 139 MEQ/L (136-145)
[2017-05-03 10:08] LABS: BLOOD UREA NITROGEN 14 MG/DL (7-18); CREATININE 0.93 MG/DL (0.50-1.00); GLOMERULAR FILTRATION RATE 58 ML/MIN (>89); TRIGLYCERIDES 55 MG/DL (42-150)
[2017-05-03 10:13] LABS: ALKALINE PHOSPHATASE 95 U/L (45-117); ALT (GPT) 17 U/L (10-53); AST (GOT) 17 U/L (15-37); CHOLESTEROL/ HDL RATIO 1.93 RATIO; HDL CHOLESTEROL 73.9 MG/DL (40.0-60.0); LDL CHOLESTEROL 58 MG/DL (0-99); TOTAL BILIRUBIN ADULT 0.3 MG/DL (0.2-1.0)
== END ==
LOC: PLAB 07:54
DX: N18.3 Chronic kidney disease, stage 3 (moderate) (principal); Z79.899 Other long term (current) drug therapy
CPT/HCPCS: 36415; 80053; 80061; 82550